=== PATIENT | male | born 1975 | race Caucasian/White ===

== ENCOUNTER 2017-01-16 12:16 | Day surgery (SDC) | payer OTHER ==
[2017-01-11 15:08] VITALS: BMI 29.9
--- NOTE | 2017-01-16 09:26 | OP ---
Operative Note - Note: Operative Date: 01/16/17 Pre-Operative Diagnosis: 41 yo m with moderate rt hydronephrosis upj stenosis Operation: rt ureteroscopy with jj stent placement Post-Operative Diagnosis: Same as Pre-op Surgeon: Wing Daily Anesthesia: General Operative Report Dictated: Yes
--- NOTE | 2017-01-16 09:30 | PN ---
Progress Note (short form) - Note Progress Note: 41 yo male s/p b/l hydrocelectomy, with moderate right hydro ct revealed upj stenosis c/o rt scr discomfort/ ing discomfort no n v christine pt for or tjhis am r ureteroscopy and jj placement will be d/c on keflex 500 qid and percocet 5-325 po q 4 prn f/u in office saturday
[~2017-01-16 12:16] MED LIST: ACETAMINOPHEN 325 MG TABLET (FP) PO PRN; CEPHALEXIN MONOHYDRATE 500 MG CAPSULE (UD) PO SCH; oxyCODONE HCL 5 MG TABLET PO PRN
[2017-01-16] MEDS ORDERED: PROPOFOL 20 ML ONE (16:06)
[2017-01-16] MEDS ORDERED: MIDAZOLAM HCL 2 MG/2 ML SINGLE DOSE VIAL ONE (16:07)
[2017-01-16] MEDS ORDERED: ceFAZolin SODIUM 1 GM VIAL IVPB ONE (16:15)
[2017-01-16] MEDS ORDERED: PROMETHAZINE HCL 25 MG/1 ML VIAL IVPUSH PRN (16:27)
[2017-01-16] MEDS ORDERED: ONDANSETRON 4 MG/2 ML VIAL IVPUSH PRN (16:27)
[2017-01-16] MEDS ORDERED: LACTATED RINGERS SOLUTION 1,000 ML IV SCH (16:30)
[2017-01-16 17:07] VITALS: TEMP 98
[2017-01-16 20:02] VITALS: BP 144/84; PULSE 79
--- NOTE | 2017-01-17 08:03 | OP ---
DATE OF OPERATION: 01/16/2017 PREOPERATIVE DIAGNOSES: Right hydronephrosis, right renal colic. POSTOPERATIVE DIAGNOSES: Right ureteropelvic junction obstruction and right ureteral stones. OPERATIVE PROCEDURE: Cystourethroscopy, right retrograde pyelogram, right ureteroscopic stone extraction, and placement of a right JJ stent. ANESTHESIA: General. DESCRIPTION OF PROCEDURE: Under above-stated anesthesia, patient is prepped and draped in the usual sterile manner. He is placed in the dorsal lithotomy position. Cystoscopy under direct vision revealed a normal anterior and posterior urethra. Bladder was entered. Urine was collected for C&S and cytology. Ureteral orifices were within normal limits. Efflux of clear urine from the left was noted. None was seen from the right. A Flexi-Tip catheter was placed into the right ureteral orifice, and 5 mL of contrast was injected. This revealed a dilated right ureter. More contrast was injected, and this revealed a severely dilated right renal pelvis with typical UPJ appearance. Approximately 40 mL of contrast was injected to fill the right renal pelvis. A filling defect was noted in the right lower ureter. Therefore, a Glidewire was passed up the right renal unit. Ureteroscopy was performed. Several small stones were found and retrieved. No active bleeding was noted. The ureteroscope was removed. A 24-cm 6-Croat[place] JJ stent was left in place. X-rays confirmed good position of the stents. The patient tolerated the procedure well. He returned to the recovery room in good condition. Bere [id number]
--- NOTE | 2017-01-17 08:46 | CONS ---
DATE OF CONSULTATION: DATE OF DICTATION: 01/16/2017 Patient is a 41-year-old male with history of right hydroureteronephrosis of several months' duration. Patient denies any trauma. He does have mild right testicular pain. He denies any voiding symptoms or history of kidney stone disease. He has undergone a varicocelectomy in the past. He has also undergone right knee surgery. The patient does smoke occasionally, drink occasionally. He denies any ethanolism. He denies diabetes or hypertension. He denies any family history of kidney stone disease. An ultrasound as well as CAT scan revealed a grade 2-3 hydroureteronephrosis. No definitive area of obstruction was noted. Urinalysis was positive for blood. Cytology was negative. Patient presently is on Tylenol No. 3, Keflex. PHYSICAL EXAMINATION: General: A well-developed adult male in no apparent distress. Abdomen: Soft. Genitalia: Atraumatic. Testes are normal in size and consistency. No hernias or hydroceles were noted. Phallus is normal. Meatus is adequate. Prostate is 2+, benign, nontender. Bulbocavernosus reflex is brisk. Saddle sensation is present. Extremities: Revealed full range of motion with no cyanosis, clubbing, or edema. IMPRESSION: Idiopathic hydronephrosis. Must rule out ureteral stricture. Must rule out radiolucent stone disease. Must rule out external compression. Will recommend a cystourethroscopy, right retrograde pyelogram, right ureteroscopy with possible stenting. Will keep you informed as to our findings. Bere [id number]
--- NOTE | 2017-01-17 12:55 | PATH ---
Surgical Pathology Report Patient Name: YOCASTA AWAD Med. Rec. #: [id number] /Age/Gender: 1975 (Age: 41) / M Account: [id number] Location: [facility] SURGICAL Taken: 01/16/2017 Received: 01/17/2017 Reported: 01/17/2017 Physicians: Wing Daily M.D. Specimen(s) Received URETERAL STONE Clinical History Hydronephrosis Final Diagnosis CALCULI, EXTRACTION: CALCULI SUBMITTED FOR CHEMICAL ANALYSIS (gross only). Electronically Signed Yordan Bella M.D. Gross Description Received dry labeled "urethral stone" are 3 calculi each of which is less than 0.1 cm greatest dimension up to 0.2 cm in greatest dimension. The specimen is submitted for chemical analysis. This is for gross identification only. [facility]/01/17/2017 [facility]/01/17/2017
--- NOTE | 2017-01-18 13:45 | PATH ---
Cytology Non-Gynecological Report Patient Name: YOCASTA AWAD [facility]. Rec. #: [id number] /Age/Gender: 1975 (Age: 41) / M Account: [id number] Location: [facility] SURGICAL Taken: 01/16/2017 Received: 01/17/2017 Reported: 01/18/2017 Physicians: Wing Daily M.D. Specimen(s) Received URINE Clinical History None given Final Diagnosis URINE FOR CYTOLOGY: SATISFACTORY FOR EVALUATION. ATYPICAL CLUSTERS OF UROTHELIAL CELLS PRESENT. Comment: Clusters of urothelial cells are atypical finding in voided urine, and may be the result of infection, inflammation, or instrumentation. However, the possibility of a low-grade urothelial neoplasm cannot be completely excluded. Recommend correlation with clinical findings and followup as clinically indicated. Also see [id number]. Electronically Signed Yordan Bella M.D. Gross Description Approximately 50 cc of yellow fluid received fresh. Two cytofunnels prepared.
[2017-01-30 00:06] LABS: COLOR Brown (.); URIC ACID 88 % (.)
== END 2017-01-16 20:13 | disposition home or self-care (01) ==
LOC: JASU-SURG 12:16
PROVIDERS: ATTEND Urology
PROC: BT1DYZZ Fluoroscopy of Right Kidney, Ureter and Bladder using Other Contrast (ICD-10-PCS; 2017-01-16)
PROC: 0TC68ZZ Extirpation of Matter from Right Ureter, Via Natural or Artificial Opening Endoscopic (ICD-10-PCS; principal; 2017-01-16 14:00)
PROC: 0T768DZ Dilation of Right Ureter with Intraluminal Device, Via Natural or Artificial Opening Endoscopic (ICD-10-PCS; 2017-01-16 14:00)
DX: N13.2 Hydronephrosis with renal and ureteral calculous obstruction (principal)
CPT/HCPCS: 36415; 76000-TC; 82360; 87086; 88108; 88300-TC; 94760